=== PATIENT | male | born 1970 | race Caucasian/White ===

== ENCOUNTER 2019-12-04 11:47 | Outpatient (CLI) | payer OTHER, SELFPAY ==
--- NOTE | ~2019-12-04 | US_ITS ---
EXAMINATION: US carotid duplex BI DATE: 12/04/2019 12:43 INDICATION: Dizziness and giddiness. TECHNIQUE: Grayscale, color Doppler, and pulsed Doppler images of the cervical carotid arteries were obtained. The degree of vessel stenosis is placed in one of the following categories: normal, <50%, 5 0-69%, >=70% but less than near-occlusion, near-occlusion, or total occlusion. Note that percent sten osis relative to normal distal artery lumen diameter is indirectly measured from velocity measurement s as described by Parmjit, et al. Radiology 2003; 229:340-346. COMPARISON: None. FINDINGS: RIGHT: The right common carotid artery (CCA) peak systolic velocity (PSV) is 72 cm/s. The right internal car otid artery (ICA) PSV is 58 cm/s. The right ICA end-diastolic velocity (EDV) is 25 cm/s. The right IC A/CCA PSV ratio is 0.8. Grayscale and color Doppler images yield an estimate of 0% diameter reduction from plaque in the ICA. There is antegrade flow in the right vertebral artery. LEFT: The left CCA PSV is 98 cm/s. The left ICA PSV is 75 cm/s. The left ICA EDV is 21 cm/s. The left ICA/C CA PSV ratio is 0.8. Grayscale and color Doppler images yield an estimate of 0% diameter reduction fr om plaque in the ICA. There is antegrade flow in the left vertebral artery. IMPRESSION: 1. Normal internal carotid arteries. Reviewed, dictated and finalized at location A. UCTION TEAM MANAGER
== END 2019-12-04 11:48 | disposition home or self-care (01) ==
LOC: CHSIMG 11:52
PROVIDERS: PCP Family Medicine; Visit Provider Family Medicine
DX: R42 Dizziness and giddiness (principal)
CPT/HCPCS: 93880

== ENCOUNTER 2019-12-10 09:45 | Outpatient (RCR) | payer OTHER, SELFPAY ==
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
--- NOTE | 2019-12-18 13:11 | PCPTNOTE ---
12/18/19 - patient called and cancelled therapy this date. JTF
== END 2020-02-03 16:08 | disposition home or self-care (01) ==
LOC: CHSPT 09:45
PROVIDERS: PCP Family Medicine; Visit Provider Family Medicine
DX: M25.512 Pain in left shoulder (principal)
CPT/HCPCS: 97110; 97140; 97161

== ENCOUNTER 2021-08-25 11:32 | Outpatient (CLI) | payer OTHER, SELFPAY ==
--- NOTE | ~2021-08-25 | XR_ITS ---
EXAMINATION: XR knee RT 3V DATE: 08/25/2021 12:15 INDICATION: Right knee pain TECHNIQUE: Three views of the right knee were obtained. COMPARISON: None. FINDINGS: There is no fracture, dislocation, or subluxation. There is mild tricompartmental osteoarth ritis characterized by marginal osteophytes and joint space narrowing, worst in the medial compartmen t. No joint effusion/synovitis. Soft tissues are unremarkable. IMPRESSION: 1. Tricompartmental osteoarthritis without acute osseous abnormality. Reviewed, dictated and finalized at location A.
--- NOTE | ~2021-08-25 | XR_ITS ---
EXAMINATION: XR femur RT min 2V INDICATION: Right knee pain TECHNIQUE: Two views of the right femur are obtained on four radiographs. COMPARISON: None available FINDINGS: There is no fracture, dislocation, or subluxation. There is moderate osteoarthritis of the knee. Mild osteoarthritis is noted in the right hip. The soft tissues are unremarkable. No joint effu suzette is identified. IMPRESSION: 1. No acute osseous abnormality. Reviewed, dictated and finalized at location A.
[2021-08-25 11:45] LABS: Basophils Absolute Auto 0.07 K/mm3 (0.00-0.10); Basophils Percent Auto 0.7 % (0.0-1.0); Eosinophils Absolute Auto 0.33 K/mm3 (0.02-0.50); Eosinophils Percent Auto 3.4 % (1.0-6.0); Hematocrit 49.7 % (40.0-54.0); Hemoglobin 15.9 g/dL (14.0-18.0); Immature Granulocyte Absolute 0.04 K/mm3 (0.00-0.00); Immature Granulocyte Percent A 0.4 % (0.0-0.0); Lymphocytes Absolute Auto 2.39 K/mm3 (1.10-4.50); Lymphocytes Percent Auto 24.7 % (18.0-42.0); Mean Corpuscular Hemoglobin 27.4 pg (27.0-31.0); Mean Corpuscular Volume 85.5 fL (78.0-102.0); Mean Platelet Volume 9.4 fl (8.7-11.0); Monocytes Absolute Auto 0.65 K/mm3 (0.10-0.90); Monocytes Percent Auto 6.7 % (2.0-11.0); Neutrophils Absolute Auto 6.2 K/mm3 (1.7-7.2); Neutrophils Percent Auto 64.1 % (50.0-70.0); Platelet Count Result 416 K/mm3 (150-420); Red Blood Count 5.81 M/mm3 (4.70-6.10); Red Cell Distribution Width 13.6 % (11.6-14.4); White Blood Count 9.7 K/mm3 (4.8-10.8)
[2021-08-25 11:58] LABS: D Dimer 0.22 mg/L (0.19-0.50)
== END 2021-08-25 11:33 | disposition home or self-care (01) ==
LOC: CHSLAB 11:34
PROVIDERS: PCP Family Medicine; Visit Provider Family Medicine
DX: M25.561 Pain in right knee (principal); M79.651 Pain in right thigh
CPT/HCPCS: 36415; 73552; 73562; 85025; 85380

== ENCOUNTER 2021-10-26 13:30 | Outpatient (CLI) | payer OTHER, SELFPAY ==
--- NOTE | 2021-10-26 13:35 | PC.NURSE ---
Pt to room 201 amb. A&Ox3. Infusion plan of care explained. Consent signed. Pt has no questions or complaints. Oriented to room. Call penaloza in reach. Reminded to call with needs.
[2021-10-26] MEDS: ACETAMINOPHEN 325 MG TABLET 650 MG PO (14:04)
[2021-10-26] MEDS: diphenhydrAMINE HCl CAP 25 MG CAPSULE PO (14:05)
[2021-10-26] MEDS: FAMOTIDINE 20 MG TABLET PO (14:05)
[2021-10-26 14:15] VITALS: BP 127/89; PULSE 81; RESP 20; TEMP 36.3; O2SAT 96
--- NOTE | 2021-10-26 15:02 | PC.NURSE ---
Pt has no complaints. Discharged to home amb with spouse.
== END 2021-10-26 13:31 | disposition home or self-care (01) ==
LOC: CHSTREATRM 13:32
PROVIDERS: PCP Family Medicine; Visit Provider Family Medicine
DX: U07.1 COVID-19 (principal); J44.9 Chronic obstructive pulmonary disease, unspecified
CPT/HCPCS: A9270; M0245; Q0245

== ENCOUNTER 2021-11-17 11:45 | Outpatient (CLI) | payer OTHER, SELFPAY ==
--- NOTE | ~2021-11-17 | XR_ITS ---
XR thoracic spine 3V DATE: 11/17/2021 12:24 INDICATION: Mid back pain since July. No known injury. TECHNIQUE: AP, lateral, swimmer views COMPARISON: None FINDINGS: There is mild degenerative spurring of the thoracic spine. No fracture or dislocation or sven ne destruction is detected. No paraspinal soft tissue thickening. IMPRESSION: Degenerative spurring of thoracic spine Reviewed, dictated and finalized at location A. TORIAL SERVICES SUPERVISOR
--- NOTE | ~2021-11-17 | XR_ITS ---
XR chest 2V DATE: 11/17/2021 12:23 INDICATION: Mid back pain since July. No injury. TECHNIQUE: 2 views COMPARISON: 10/17/2016 PA and lateral chest FINDINGS: Normal heart size. No hilar or mediastinal enlargement. No pulmonary infiltrate or consol idation, pulmonary vascular congestion or pleural effusion or pneumothorax. Degenerative spurring of the thoracic spine. IMPRESSION: No active cardiopulmonary disease Reviewed, dictated and finalized at location A. CLEANER
[2021-11-17 12:03] LABS: Add Urine Microscopic? NO; Appearance Urine Clear (Clear); Bilirubin Urine Negative (Negative); Blood Urine Negative (Negative); Color Urine Light Yellow (Yellow); Glucose Urine UA Negative (Negative); Ketones Urine Negative (Negative); Leukocyte Esterase Ur Negative (Negative); Nitrate Urine Negative (Negative); Protein Urine Negative (Negative); Urobilinogen Urine 0.2 mg/dL (0.2-1.0); pH Urine 6.5 (5.0-8.0)
[2021-11-17 12:05] LABS: Basophils Absolute Auto 0.07 K/mm3 (0.00-0.10); Basophils Percent Auto 0.6 % (0.0-1.0); Eosinophils Absolute Auto 0.17 K/mm3 (0.02-0.50); Eosinophils Percent Auto 1.4 % (1.0-6.0); Hemoglobin 15.5 g/dL (14.0-18.0); Immature Granulocyte Absolute 0.04 K/mm3 (0.00-0.00); Immature Granulocyte Percent A 0.3 % (0.0-0.0); Immature Platelet Fraction Pct 0.8 % (1.0-7.0); Lymphocytes Absolute Auto 1.73 K/mm3 (1.10-4.50); Mean Corpuscular HGB Conc 32.3 g/dL (32.0-36.0); Mean Corpuscular Hemoglobin 27.6 pg (27.0-31.0); Mean Corpuscular Volume 85.6 fL (78.0-102.0); Mean Platelet Volume 8.9 fl (8.7-11.0); Monocytes Absolute Auto 0.62 K/mm3 (0.10-0.90); Neutrophils Absolute Auto 9.7 K/mm3 (1.7-7.2); Neutrophils Percent Auto 78.7 % (50.0-70.0); Platelet Count Result 523 K/mm3 (150-420); Red Blood Count 5.61 M/mm3 (4.70-6.10); Red Cell Distribution Width 13.6 % (11.6-14.4); White Blood Count 12.3 K/mm3 (4.8-10.8)
[2021-11-17 14:17] LABS: Alanine Aminotransferase 25 U/L (16-63); Albumin Level 4.3 g/dL (3.4-5.0); Alkaline Phosphatase 107 U/L (46-116); Amylase 27 U/L (25-115); Anion Gap 12 mmol/L (8-16); Aspartate Amino Transferase 16 U/L (15-37); Bilirubin,Total 0.7 mg/dL (0.00-1.00); Blood Urea Nitrogen 8 mg/dL (7-18); Calcium 9.3 mg/dL (8.5-10.1); Carbon Dioxide 24 mmol/L (21-32); Chloride 102 mmol/L (98-108); Estimated Glomerular Filt Rate > 60; Glucose 106 mg/dL (70-99); Lipase 65 U/L (73-393); Osmolality Calculated 284 mOsm/kg (285-295); Potassium 4.4 mmol/L (3.5-5.1); Sodium 138 mmol/L (136-145); Total Protein 7.7 g/dL (6.4-8.2)
== END 2021-11-17 11:46 | disposition home or self-care (01) ==
LOC: CHSLAB 11:48
PROVIDERS: PCP Family Medicine; Visit Provider Family Medicine
DX: R10.12 Left upper quadrant pain (principal); M54.6 Pain in thoracic spine
CPT/HCPCS: 36415; 71046; 72072; 80053; 81003; 82150; 83690; 85025; 85055

== ENCOUNTER 2021-11-23 10:38 | Outpatient (CLI) | payer OTHER, SELFPAY ==
--- NOTE | ~2021-11-23 | MR_ITS ---
EXAMINATION: MR thoracic spine wo con EXAM DATE: 11/23/2021 11:19 INDICATION: Thoracic Radiculopathy Thoracic Radiculopathy,Rt Side Back Pain X2-3mo . TECHNIQUE: Multi-sequential, multiplanar MR images of the thoracic spine were obtained without contra st. Sagittal T1, T2, T2 fat saturation, axial T2 weighted images reviewed. There is no prior study for comparison. FINDINGS: The vertebral bodies are aligned in the AP dimension. Mild mid and lower thoracic disc dise ase. Vertebral body heights are maintained. The spinal cord signal intensity and intrinsic morphology is normal. Mild thoracic facet arthropathy. Paraspinal soft tissue is unremarkable. Neural foramen a nd central canal are widely patent. There are no suspicious marrow signal abnormalities. Probable focal encapsulated subcutaneous lipoma 2 cm in the midline at the midthoracic level. There m ay be an externally placed marker just below this level, was very palpable abnormality? IMPRESSION: 1. Mild thoracic spondylosis. 2. Probable small encapsulated lipoma. 3. No acute findings. Reviewed, dictated and finalized at location A. FIELD PUMPER
== END 2021-11-23 10:39 | disposition home or self-care (01) ==
LOC: CHSIMG 10:39
PROVIDERS: PCP Family Medicine; Visit Provider Family Medicine
DX: M54.14 Radiculopathy, thoracic region (principal)
CPT/HCPCS: 72146

== ENCOUNTER 2021-11-26 14:18 | Outpatient (CLI) | payer OTHER, SELFPAY ==
--- NOTE | ~2021-11-26 | XR_ITS ---
XR lumbar spine 2-3V DATE: 11/26/2021 14:44 INDICATION: Low back pain for 3 months. No known injury. TECHNIQUE: AP, lateral, coned lateral lumbosacral views COMPARISON: None FINDINGS: Surgical clips, right upper quadrant, consistent with cholecystectomy. There is mild degenerative spurring of the lumbar spine. Lumbar and lumbosacral interspaces are relat ively well preserved. No fracture or bone destruction. The included lower thoracic and lumbar pedicles are intact. The sacroiliac joints appear normal. IMPRESSION: Mild degenerative spurring of lumbar spine Reviewed, dictated and finalized at location A. ATIONS INSPECTOR
--- NOTE | ~2021-11-26 | US_ITS ---
US scrotum doppler INDICATION: Right lower quadrant pain TECHNIQUE: Testicular sonogram utilizing grayscale and color Doppler FINDINGS: The testes are normal in size and appearance. No focal lesions are seen. The right testes measures 3.8 x 2.5 x 3.2 cm centimeters, and the left testis measures 3.2 x 2.5 x 2.6 cm cm. There is normal vascular flow to both testes. The right and left epididymides appear normal. There is no varicocele or hydrocele. IMPRESSION: 1. NORMAL TESTICULAR ULTRASOUND. Reviewed, dictated and finalized at location B. T CONTROL OPERATOR HELPER
== END 2021-11-26 14:19 | disposition home or self-care (01) ==
LOC: CHSIMG 14:20
PROVIDERS: PCP Family Medicine; Visit Provider Family Medicine
DX: M54.50 Low back pain, unspecified (principal); R10.31 Right lower quadrant pain
CPT/HCPCS: 72100; 76870; 93976

== ENCOUNTER 2022-01-25 06:56 | Outpatient (CLI) | payer OTHER, SELFPAY ==
--- NOTE | ~2022-01-25 | MR_ITS ---
EXAMINATION: MR lumbar spine wo con DATE: 01/25/2022 08:00 INDICATION: Low back pain. TECHNIQUE: Magnetic resonance imaging (MRI) of the lumbar spine was performed without intravenous con trast. Sequences included sagittal T2-weighted FSE, sagittal T2-weighted FS FSE, sagittal T1-weighted FSE, and axial T2-weighted FSE. COMPARISON: None FINDINGS: Bone alignment is normal. Vertebral body heights are normal. There are hemangiomas in L1 an d L3 vertebral bodies. There is mildly decreased disc height at L4-L5 and L5-S1. The distal spinal co rd signal intensity is normal. The conus medullaris is at T12-L1. The following disc levels are speci fically discussed: L1-L2: The disc does not extend beyond the endplate margin. There is mild bilateral facet joint osteo arthritis. There is no neural foraminal stenosis. There is no central canal stenosis. L2-L3: The disc does not extend beyond the endplate margin. There is mild bilateral facet joint osteo arthritis. There is no neural foraminal stenosis. There is no central canal stenosis. L3-L4: There is a left foraminal protrusion. There is mild bilateral facet joint osteoarthritis. Ther e is mild left neural foraminal stenosis. There is no central canal stenosis. L4-L5: The disc is bulging and has an annular fissure. There is mild bilateral facet joint osteoarthr itis. There is mild bilateral neural foraminal stenosis. There is mild central canal stenosis. L5-S1: The disc is bulging and has an annular fissure. There is mild bilateral facet joint osteoarthr itis. There is mild bilateral neural foraminal stenosis. There is mild central canal stenosis. IMPRESSION: 1. Mild lumbar spondylosis. Reviewed, dictated and finalized at location A. IMPRESSION: 1. Mild lumbar spondylosis.
== END 2022-01-25 06:57 ==
LOC: CHSIMG 06:58
PROVIDERS: PCP Family Medicine; Visit Provider Family Medicine
DX: M54.50 Low back pain, unspecified (principal); Z85.038 Personal history of other malignant neoplasm of large intestine
CPT/HCPCS: 72148

== ENCOUNTER 2023-04-17 11:17 | Outpatient (CLI) | payer OTHER, SELFPAY ==
--- NOTE | ~2023-04-17 | XR_ITS ---
XR knee LT 3V 04/17/2023 11:32 Indication: Left knee pain Procedure: 3 views left knee Comparison: 06/22/2006 Findings: There is moderate tricompartment osteoarthritis of the left knee. No fracture, subluxation or dislocation. There is a joint effusion. No foreign bodies. Impression: 1: Moderate tricompartment osteoarthritis of the left knee. 2: Moderate joint effusion. Reviewed, dictated and finalized at location [] Impression: 1: Moderate tricompartment osteoarthritis of the left knee. 2: Moderate joint effusion.
== END 2023-04-17 11:18 | disposition home or self-care (01) ==
LOC: CHSIMG 11:19
PROVIDERS: PCP Family Medicine; Visit Provider Family Medicine
DX: M25.562 Pain in left knee (principal); M17.12 Unilateral primary osteoarthritis, left knee; M25.462 Effusion, left knee
CPT/HCPCS: 73562

== ENCOUNTER 2025-06-03 09:33 | Outpatient (CLI) | payer OTHER, SELFPAY ==
--- NOTE | ~2025-06-03 | XR_ITS ---
Right ankle Technique: AP, oblique, and lateral views were obtained. Clinical History: Heel pain Findings: No acute fracture or dislocation is seen. Osseous alignment is anatomic. There is mild dege nerative change of the tibiotalar joint. Small plantar calcaneal spur present. Soft tissues are other deng unremarkable. Impression: Mild degenerative changes, as above. Reviewed, dictated and finalized at location . Impression: Mild degenerative changes, as above.
--- OUTSIDE RECORDS SUMMARY | 2025-06-03 09:56 | XMS_ITS | Encounter Summary ---
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
--- OUTSIDE RECORDS SUMMARY | 2025-06-03 09:56 | XMS_ITS | Clinical Summary ---
Author Organization [facility] Address [address] [address] Phone Care Team Providers Care Process Plant Operator Name Role Phone Diallo Gutierrez MD Primary Care Provider Jacqueline Pathak MD Unavailable [phone] Allergies No known active allergies Medications Probiotic Product (PROBIOTIC PO) Take 1 Tab by mouth daily. Active ibuprofen (MOTRIN) 600 MG Tablet Take 1 Tab by mouth every 8 hours as needed for Mild or more severe pain. 270 Tab 3 07/29/2019 Active Active Problems Problem Noted Date Diagnosed Date Cecal polyp 08/30/2019 Rectal cancer 06/28/2019 History of colon cancer 06/28/2019 ERROL (obstructive sleep apnea) 06/04/2019 Morbid obesity 06/04/2019 SOB (shortness of breath) 06/04/2019 Cholecystitis 02/21/2019 HTN (hypertension) 02/19/2019 HLD (hyperlipidemia) 02/19/2019 Resolved Problems Problem Noted Date Diagnosed Date Resolved Date Colon cancer 02/19/2019 06/28/2019 Immunizations Immunization Administration Dates Next Due Influenza Vaccine, Quadrivalent, PF 02/20/2019 Family History Medical History Relation Name Comments No Known Problems Daughter 1 No Known Problems Daughter 2 Coronary Artery Disease Father Heart Disease Father a-fib Stroke Father Cancer Maternal Aunt 1 throat Cancer Maternal Aunt 2 throat Cancer Maternal Uncle stomach Arthritis Mother Diabetes Mother Other-comment Mother A Fib No Known Problems Son Relation Name Status Comments Brother Alive Daughter 1 Alive Daughter 2 Alive Father Maternal Aunt 1 Maternal Aunt 2 Maternal Uncle Mother Alive Sister Alive Son Alive Social History Tobacco Use Types Packs/Day Years Used Date Smoking Tobacco: Former Cigarettes 1 7.6 0 07/16/2001 - 02/11/2009 Smokeless Tobacco: Never Tobacco Cessation:Counseling Given: No Comments:quit for a few years in between Alcohol Use Standard Drinks/Week Comments Never 0 (1 standard drink = 0.6 oz pur e alcohol) AUDIT-C Answer Date Recorded Frequency of Alcohol Consumption Never 02/11/2019 Average Number of Drinks Not on file 019 Frequency of Binge Drinking Not on file 01/28 PHQ-2 Answer Date Recorded PHQ-2 Score 0 06/27/2019 Sexually Active Control Partners Comments Yes Female Sex and Gender Information Value Date Recorded Sex Assigned at Not on file Legal Sex Male 8:49 AM CDT Gender Identity Not on file Sexual Orientation Not on file Last Filed Vital Signs Vital Sign Reading Time Taken Comments Blood Pressure 132/90 11/08/2019 10:02 AM CRYSTALLOGRAPHER Pulse 78 11/08/2019 10:02 AM CRYSTALLOGRAPHER Temperature 36.8 C (98.3 F) 11/08/2019 10:02 AM CRYSTALLOGRAPHER Respiratory Rate 18 11/08/2019 10:02 AM CRYSTALLOGRAPHER Oxygen Saturation 96% 11/08/2019 10:02 AM CRYSTALLOGRAPHER Inhaled Oxygen Concentration - - Weight 123.8 kg (273 lb) 11/08/2019 10:02 AM CRYSTALLOGRAPHER Height 170.2 cm (5' 7) 11/08/2019 10:02 AM CRYSTALLOGRAPHER Body Mass Index 42.76 11/08/2019 10:02 AM CRYSTALLOGRAPHER Plan of Treatment Health Maintenance Due Date Last Done Comments Hepatitis C Virus (HCV) Screening 1969 TdaP Immunization 1969 SARS-COV-2 Immunization (#1) 1974 Hepatitis B Immunization (1 of 3 - 19+ 3-dose series) 1988 Pneumococcal Immunization (50+ years) (1 of 2 - PCV) 1988 Zoster Immunization (1 of 2) 1988 Cologuard 2014 Immunochemical Fecal Occult Blood 2014 PSA Discussion 2024 Influenza Immunization (#1) 2025 02/20/2019 Colonoscopy 07/18/2033 07/18/2023, 06/30, 07/19/2021, Additional history exists Colorectal Cancer Screening 07/18/2033 Respiratory Syncytial Virus (RSV) Immunization (Adult) (1 - 1-dose 75+ series) 2044 Human Papillomavirus (HPV) Immunization Aged Out No longer eligible based on patient's age to complete this topic Meningococcal Immunization (ACWY) Aged Out No longer eligible based on patient's age to complete this topic Rotavirus Immunization Aged Out No lo nger eligible based on patient's age to complete this topic Medical Devices Implanted Type Area Correctional Food Service Supervisor Device Identifier Shelf Expiration Date Model / Serial / Lot Clip 360 Resolution 235cm - [id number] Implanted:Qty: 5 on 10/28/2019 by Don Pike DO at [facility] IMPLANT [employer] 07/22/2022 [id number] / [id number] / [id number] Insurance MED[place]ID [place] Advance Directives * Full Code (Latest Code Status on File) Date Activated Date Inactivated Comments 02/19/2019 12:34 PM 02/24/2019 2:57 PM CPR-Full Tr eatment: FULL ARREST: Attempt Resuscitation/CPR wit intubation and mechanical ventilation. PRE-ARREST: Use entire range of life support measures to stabilize the patient. Care Teams Process Plant Operator Relationship Specialty Start Date End Date Diallo Gutierrez MD [address] [place] [address] PCP - General Pediatrics 02/05/19 Jacqueline Pathak MD [address] [place] [address] General Surgery 11/01/19
--- OUTSIDE RECORDS SUMMARY | 2025-06-03 09:56 | XMS_ITS | Clinical Summary ---
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 Gender Identity Not on file Sexual Orientation Not on file Plan of Treatment Health Maintenance Due Date Last Done Comments Colorectal Cancer Screening Colonoscopy (10 Years) 1969 Annual Physical 1972 Hepatitis C 1987 DTaP, Tdap and Td Vaccines ( 1 - Tdap) 1988 Hepatitis B Vaccines (1 of 3 - 19+ 3-dose series) 1988 Pneumococcal Vaccine: 50+ Ye ars (1 of 1 - PCV) 2019 Zoster Vaccines (1 of 2) 2019 COVID-19 Vaccine (2023-2 5 season) 2024 Meningococcal B Vaccine Aged Out No l onger eligible based on patient's age to complete this topic Meningococcal Vaccine Aged Out No isidra phillip eligible based on patient's age to complete this topic RSV Immunizations Under 20 Months Aged Out No longer eligible based on patient's age to complete this topic
--- OUTSIDE RECORDS SUMMARY | 2025-06-03 09:56 | XMS_ITS ---
Author Organization [facility] Address [facility] [place] [address] Care Team Providers Care Diver Helper Name Role Phone Diallo Gutierrez MD Primary Care Provider Active Problems Problem Noted Date Diagnosed Date High grade dysplasia in colonic adenoma 12/18/19 20 Rectal cancer Current Treatment and Therapy Plans No current plan information found. Past Treatment and Therapy Plans No past plan information found. Lifetime Dose Tracking * Chemical Lifetime Dose Automatic Entry Manual Entr y Dose Length Product 3,774.3 mGy-cm 3,774.3 mGy-cm 0 mG y-cm
--- OUTSIDE RECORDS SUMMARY | 2025-06-03 09:56 | XMS_ITS | Clinical Summary ---
Author Organization [facility] Address [address] [place] [address] Care Team Providers Care Print Press Operator Name Role Phone Diallo Gutierrez MD Primary Care Provider [phone] Source Comments [facility],non-owned Affiliates and Associated Physician Practices is amultiple site organization consisting of ambulatory clinics and hospital sitesin [place], [place], [place] and [place]. This disclosure is being madepursuant to the Care Everywhere program and may not contain all information available regarding this patient. Last updated 18.[facility] Allergies No known active allergies Medications * Be aware that medications may not be up to date on this document. Alwaysverify current medications with the patient. Probiotic Product (PROBIOTIC DAILY PO) Take 1 capsule by mouth once daily Active acetaminophen (TYLENOL) 500 MG tablet Take 1 tablet by mouth every 6 hours as needed Maximum allowable Acetaminophen amount = 4 Grams (4000 mg) / 24 hours. 0 Active docusate sodium (COLACE) 100 MG capsule Take 1 capsule by mouth 2 times daily as needed for Constipation Start AFTER bowel movements solidify. Take only as needed for constipation 45 capsule 0 Active Additional Information Patient not taking.Reported on 07/18/2022 ibuprofen (MOTRIN) 600 MG tablet Take 1 (one) tablet by mouth every 6 hours as needed for Pain Active polyethylene glycol (Gavilyte-C) 240 g solution Drink half the prep at 5 pm the evening prior to the procedure. Finish the prep at 4 am the morning of the procedure. 4000 mL 3 Active Active Problems Problem Noted Date Diagnosed Date High grade dysplasia in colonic adenoma 12/18/19 20 Rectal cancer Social History Tobacco Use Types Packs/Day Years Used Date Smoking Tobacco: Former Cigarettes 1 5 2 001 - 2006 Smokeless Tobacco: Current Alcohol Use Standard Drinks/Week Comments Not Currently 0 (1 standard drink = 0.6 oz pur e alcohol) AUDIT-C Answer Date Recorded Q1: How often do you have a drink containing alc ohol? Monthly or less 07/18/2022 Q2: How many drinks containi ng alcohol do you have on a typical day when you are drinking? 1 or 2 07/18/2022 Q3: How often do you have si x or more drinks on one occasion? Never 07/18/2022 Sex and Gender Information Value Date Recorded Sex Assigned at Not on file Legal Sex Male 7:31 AM CDT Gender Identity Not on file Sexual Orientation Not on file Last Filed Vital Signs Vital Sign Reading Time Taken Comments Blood Pressure 157/90 07/18/2023 1:30 PM CDT Pulse 75 07/18/2023 1:30 PM CDT Temperature 36.7 C (98 F) 07/18/2023 1:04 PM CDT Respiratory Rate 13 07/18/2023 1:30 PM CDT Oxygen Saturation 96% 07/18/2023 1:30 PM CDT Inhaled Oxygen Concentration - - Weight 117.8 kg (259 lb 11.2 oz) 2022 11:05 AM CDT Height 171.5 cm (5' 7.5) 07/18/2023 11 :05 AM CDT Body Mass Index 40.07 07/18/2023 11:05 AM CDT Plan of Treatment Health Maintenance Due Date Last Done Comments COLOGUARD (AGES 45-75) - COLON CA SCREENING 1970 CT COLONOGRAPHY - COLON CA SCREENING 1970 FIT - COLON CA SCREENING 1969 FLEX SIG - COLON CA SCREENING 1969 HIV SCREENING 1984 HEPATITIS C SCREENING 10/05/1987 DTAP/TDAP/TD VACCINES (1 - Tdap) 1988 HEPATITIS B VACCINE (1 of 3 - 19+ 3-dose series) 1988 PNEUMOCOCCAL VACCINE 50+ (1 of 1 - PCV) 2019 ZOSTER VACCINE (1 of 2) 2019 SCREENING FOR DIABETES 01/02/2023 , 01/02/2020, 12/18/2019, Additional history exists LIPID TESTING 02/20/2024 02/19/2019 COVID-19 VACCINE ( - season) 2024 DEPRESSION SCREENING 10/30/2024 INFLUENZA VACCINE (#1) 2025 02/20/2019 COLON MONITORING 07/18/2033 07/18/2023, , 07/18/2022, Additional history exists COLONOSCOPY - COLON CA SCREENING 07/18/2033 07/18/2023, 07/18/2023, 07/18/2022, Additional history exists Colorectal Cancer Screening 07/18/2033 HIB VACCINE Aged Out No longer eligi ble based on patient's age to complete this topic HPV VACCINE Aged Out No longer eligi ble based on patient's age to complete this topic MENINGOCOCCAL (Group B) VACCINE SHARED DECISION-MAKING Aged Out No longer eligible based on patient's age to complete this topic MENINGOCOCCAL GROUPS A/C/Y/W VACCINE Aged Out No longer eligible based on patient's age to complete this topic Procedures Procedure Name Priority Date/Time Associated Diagnosis Comments ENDOSCOPY, COLON, DIAGNOSTIC Routine 07/18/2023 12:12 PM CDT BASIC METABOLIC PANEL (CALCIUM TOTAL) Routine 01/03/2020 2:09 AM [facility] C[facility] MANAGER from Last 3 Months or Most Recently Relevant to Health Maintenance Results * ENDOSCOPY, COLON, DIAGNOSTIC (07/18/2023 12:12 PM CDT) Report Endoscopy POC Endoscopy Department Report _ Patient Name: Renan Evangelista Procedure Date: 07/18/2023 12:12 PM Date of : 1970 Classification: Outpatient Gender: Male Ethnicity: Not or Race: White _ Providers: Nba Cooper MD; Pura Herrmann MD (Fellow) Referring MD: Jacqueline Pathak MD; Diallo Gutierrez MD Procedure: Colonoscopy Indications: High risk colon cancer surveillance: Personal history of colonic polyps Medications: See the Anesthesia note for documentation of the administered medications, Monitored Anesthesia Care. Patient Profile: 52M w/ h/o rectal cancer s/p TAMIS; sigmoid colon cancer s/p resection; cecal TA s/p ascending colectomy; and otherwise few diminutive adenomas removed endoscopically. Here for surveillance colonoscopy. Description of Procedure: After I obtained informed consent, the scope was passed under direct vision. Throughout the procedure, the patient's blood pressure, pulse, and oxygen saturations were monitored continuously. The Colonoscope was introduced through the anus and advanced to the terminal ileum. The colonoscopy was performed without difficulty. The patient tolerated the procedure well. The quality of the bowel preparation was adequate. Findings: Patent end-to-side ileo-colonic anastomosis at the ascending colon, characterized by healthy appearing mucosa. One 2 mm sessile polyp in the ascending colon, removed with a jumbo cold forceps. Resected and retrieved. Patent end-to-end colo-colonic anastomosis at the descending colon, characterized by healthy appearing mucosa. Two 4-5 mm sessile polyps in the descending colon, removed with a cold snare. Resected and retrieved. Small non-bleeding internal hemorrhoids. Normal perianal and digital rectal examination. Otherwise normal exam on direct and retroflexion views. Estimated Blood Loss: Estimated blood loss was minimal. Complications: No immediate complications. Impression: - Patent end-to-side ileo-colonic anastomosis at the ascending colon, characterized by healthy appearing mucosa. - One 2 mm sessile polyp in the ascending colon, removed with a jumbo cold forceps. Resected and retrieved. - Patent end-to-end colo-colonic anastomosis at the descending colon, characterized by healthy appearing mucosa. - Two 4-5 mm sessile polyps in the descending colon, removed with a cold snare. Resected and retrieved. - Small non-bleeding internal hemorrhoids. Moderate Sedation: . Recommendation: - Monitor for fevers, bleeding, pain. - Resume previous diet as tolerated. - Resume previous medications today. - Follow-up pathology / biopsy results. Further management accordingly. - Follow-up with primary care / referring providers. Should plan and refer for repeat Colonoscopy in 3 years. - Early colorectal cancer screening of first degree relatives via Colonoscopy. - The potential complications and concerning symptoms/findings , including but not limited to early or delayed fevers, infection, pain, bleeding, perforation, were discussed with the patient/caregiver . Emergency contact information was provided. Attending Participation: I was present and participated during the entire procedure, including non-chowdhury portions. Procedure Code(s): --- Professional --- 29598, Colonoscopy, flexible; with removal of tumor(s), polyp(s), or other lesion(s) by snare technique 61830, 59, Colonoscopy, flexible; with biopsy, single or multiple Diagnosis Code(s): --- Professional --- Z86.010, Personal history of colonic polyps D12.2, Benign neoplasm of ascending colon D12.4, Benign neoplasm of descending colon CPT copyright 2021 [employer]. All rights reserved. The codes documented in this report are preliminary and upon retail mortgage banker review may be revised to meet current compliance requirements. Nba Cooper MD 07/18/2023 1:03:44 PM Note Initiated On: 07/18/2023 12:12 PM Number of Addenda: [id number] [place] [address] PROVATION 07/18/2023 12:1 2 PM CDT us Nba Cooper MD GI PROCEDURE ORDERAB LES Edited Result - Final [facility] * BASIC METABOLIC PANEL (CALCIUM TOTAL) (01/03/2020 2:[address] [facility]) BUN 9 7 - 26 mg/dL 01/03/2020 3:06 AM [facility] Creatinine 0.7 0.6 - 1.2 mg/dL 01/03/2020 3:06 AM [facility] Sodium 139 136 - 145 mmol/L 01/03/2020 3:06 AM [facility] Potassium 4.0 3.5 - 4.5 mmol/L 01/03/2020 3:06 AM [facility] Chloride 106 98 - 107 mmol/L 01/03/2020 3:06 AM [facility] CO2 26 22 - 29 mmol/L 01/03/2020 3:06 AM [facility] Glucose 110 70 - 115 mg/dL 01/03/2020 3:06 AM [facility] Calcium 8.4 8.4 - 10.2 mg/dL 01/03/2020 3:06 AM [facility] Anion Gap 11 8 - 18 01/03/2020 3:06 AM [facility] BUN/Creatinine Ratio 13 7 - 23 01/03/2020 3:06 AM [facility] Osmolality Calculated 287 270 - 300 mOsm/kg 01/03/2020 3:06 AM [facility] eGFR >60 >60 mL/min/1.7 3 m2 01/03/2020 3:06 AM [facility] Blood BLOOD SPECIMEN / Unknown Lab Venipuncture / Unknown 01/03/2020 2:[address] [facility] 01/03/2020 2:[address] [facility] us Johanna Haynes MD LAB - CHEMISTRY ORDERABLES Fi nal Result [facility] [address] [phone] from Last 3 Months or Most Recently Relevant to Health Maintenance Insurance [facility] Advance Directives * Full Code (Latest Code Status on File) Date Activated Date Inactivated Comments 01/01/2020 6:54 PM 01/03/2020 2:57 PM Care Teams Print Press Operator Relationship Specialty Start Date End Date Diallo Gutierrez MD [address] [place] [address] PCP - General 06/28/19
== END 2025-06-03 09:34 | disposition home or self-care (01) ==
LOC: CHSIMG 09:36
PROVIDERS: PCP Family Medicine; Visit Provider Family Medicine
DX: M79.671 Pain in right foot (principal)
CPT/HCPCS: 73610